=== PATIENT | female | born 1945 | race African-American/Black ===

== ENCOUNTER 2022-04-21 08:56 | Emergency (ER) | payer MEDICARE, MEDICAID ==
[~2022-04-21] VITALS: Ht 162.6 cm; Wt 62.0 kg
[2022-04-21 09:13] VITALS: BP 145/76
[2022-04-21] MEDS ORDERED: HC A30CR10 RC (10:51)
== END 2022-04-21 11:03 | disposition home or self-care (01) ==
LOC: ER 08:56
DX: L29.9 Pruritus, unspecified (principal); E78.00 Pure hypercholesterolemia, unspecified; I10 Essential (primary) hypertension; Z86.73 Personal history of transient ischemic attack (TIA), and cerebral infarction without residual deficits
CPT/HCPCS: 99282

== ENCOUNTER → 2024-10-13 | Outpatient (CLI) | payer MEDICARE, MEDICAID ==
[~2024-10-13] MED LIST: HC A30CR10 RC; IOHEXOL-350 100 ML BOTTLE ONE
== END | disposition home or self-care (01) ==
LOC: CT 08:09
PROVIDERS: ATTEND Internal Medicine Nephrology
DX: N28.1 Cyst of kidney, acquired (principal); K57.30 Diverticulosis of large intestine without perforation or abscess without bleeding; K56.41 Fecal impaction; I70.1 Atherosclerosis of renal artery; K76.89 Other specified diseases of liver; S33.140A Subluxation of L4/L5 lumbar vertebra, initial encounter; M53.86 Other specified dorsopathies, lumbar region; M48.07 Spinal stenosis, lumbosacral region; I77.4 Celiac artery compression syndrome; I70.203 Unspecified atherosclerosis of native arteries of extremities, bilateral legs; Z90.710 Acquired absence of both cervix and uterus; X58.XXXA Exposure to other specified factors, initial encounter; Y93.89 Activity, other specified; Y92.89 Other specified places as the place of occurrence of the external cause; Y99.8 Other external cause status
CPT/HCPCS: 74175; Q9967